=== PATIENT | male | born 1965 | race Caucasian/White ===

== ENCOUNTER 2016-07-12 03:27 | Observation (INO) | payer OTHER ==
[2016-07-12] MEDS ORDERED: ASPIRIN 81 MG TABLET, CHEWABLE PO ONE ×2 (04:07→04:21)
[2016-07-12] MEDS ORDERED: ASPIRIN 81 MG TABLET, CHEWABLE ONE (04:21)
--- NOTE | 2016-07-12 04:27 | ER Document Report ---
ED General - General Mode of Arrival: Ambulatory Information source: Patient TRAVEL OUTSIDE OF THE [place] IN LAST 30 DAYS: No - HPI Onset: Other - 3-5 days Onset/Duration: Persistent Quality of pain: Pressure Severity: Severe Pain Level: 4 Associated symptoms: Nausea Exacerbated by: Denies Relieved by: Denies Similar symptoms previously: No Recently seen / treated by doctor: No <PAT GARLAND - Last Filed: 07/12/16 07:08> <THANH VILLALTA - Last Filed: 07/12/16 08:48> - General Chief Complaint: Chest Pain Stated Complaint: CHEST PAIN Notes: Patient presents to the emergency department with complaints of chest pain midsternal, shortness of breath, nausea and pain in his left arm that makes his left hand go numb. He reports symptoms for the past 3-5 days. He reports some nausea but denies fever,vomiting,diarrhea. His reports that he hasn't been sleeping because of the pain. He reports at first it felt like a small dog was sitting on his chest and now feels more like a cow. Patient has a history of hypertension. Reports he hasn't taken meds in over a year because he thought he could cure himself. Patient also smokes a pack a day and drinks 2-3 beers a day. Reports mother with coronary artery disease but reports it was just recently diagnosed. reports increased stress in his life because two children just moved back home and she just had brain surgery. (PAT GARLAND) - Related Data Allergies/Adverse Reactions: No Known Allergies Allergy (Unverified 07/12/16 03:37) Past Medical History - General Information source: Patient - Social History Smoking Status: Current Every Day Smoker Cigarette use (# per day): Yes - 1ppd Frequency of alcohol use: Occasional - 12 pk a week Drug Abuse: None Occupation: retired Lives with: Family Family History: CAD - mother, Malignancy - father Patient has suicidal ideation: No Patient has homicidal ideation: No - Past Medical History Cardiac Medical History: Reports: Hx Hypertension Renal/ Medical History: Denies: Hx Peritoneal Dialysis Past Surgical History: Reports: Hx Orthopedic Surgery <PAT GARLAND - Last Filed: 07/12/16 07:08> Review of Systems <PAT GARLAND - Last Filed: 07/12/16 07:08> <THANH VILLALTA - Last Filed: 07/12/16 08:48> - Review of Systems Notes: Review HPI for review of systems., All other systems negative (PAT GARLAND) Physical Exam - Cardiovascular Rhythm: Regular Heart sounds: Normal auscultation Murmur: No Friction rub: No Normal capillary refill: Yes <PAT GARLAND - Last Filed: 07/12/16 07:08> <THANH VILLALTA - Last Filed: 07/12/16 08:48> - Vital signs Vitals: Temp Pulse Resp BP Pulse Ox 97.8 F 88 18 173/102 H 97 07/12/16 03:35 07/12/16 03:35 07/12/16 03:35 07/12/16 03:35 07/12/16 03:35 - Notes Notes: PHYSICAL EXAMINATION: GENERAL: Well-appearing and in no acute distress nontoxic looking, laughs easily HEAD: Atraumatic, normocephalic. EYES: Pupils equal round and reactive to light, extraocular movements intact, sclera anicteric, conjunctiva are normal. ENT: nares patent, oropharynx clear without exudates. Moist mucous membranes. NECK: Normal range of motion, supple without lymphadenopathy LUNGS: CTAB and equal. No wheezes rales or rhonchi. HEART: Regular rate and rhythm without murmurs ABDOMEN: Soft, no tenderness. No guarding, no rebound BACK: No c/o pain EXTREMITIES: Normal range of motion, no pitting edema. No cyanosis. NEUROLOGICAL: Cranial nerves grossly intact. Normal sensory/motor exams. PSYCH: Normal mood, normal affect. SKIN: Warm, Dry, normal turgor, no rashes or lesions noted (PAT GARLAND) Course - Laboratory Result Diagrams: 07/12/16 04:12 07/12/16 04:12 - Diagnostic Test Radiology reviewed: Image reviewed, Reports reviewed - RAD/ CHEST PA/LAT IMPRESSION: NO SIGNIFICANT RADIOGRAPHIC FINDING IN THE CHEST. - EKG Interpretation by Wy EKG shows normal: Sinus rhythm <PAT GARLAND - Last Filed: 07/12/16 07:08> - Laboratory Result Diagrams: 07/12/16 04:12 07/12/16 04:12 <THANH VILLALTA - Last Filed: 07/12/16 08:48> - Re-evaluation Re-evalutation: 07/12/16 04:27 Patient instructed on plan of care to include cardiac enzymes nitroglycerin for the chest pain and monitoring. Patient verbalized understanding to all instructions. 07/12/16 05:28 pt received sl ntg report it did relieve some of the pressure, now 2/5 07/12/16 07:00 Nitropaste placed on patient. He now reports pressure 1/5. Updated on repeat CE at 0800. 07/12/16 07:09 Report given to Thanh Villalta ASSOCIATE SALES REPRESENTATIVE, Pt introduced to Thanh. (PAT GARLAND) 07/12/16 08:45 Patient hemodynamically stable, resting comfortably, in no distress at this time. Second set of cardiac enzymes remain normal. Patient presentation and findings discussed with hospitalist Tanisha Ortiz ASSOCIATE SALES REPRESENTATIVE who agrees to assume care, evaluate patient in the ED, and admit to telemetry observation unit. Findings and plan discussed with patient who verbalized understanding to ending and agrees with plan. (THANH VILLALTA) - Vital Signs Vital signs: Temp Pulse Resp BP Pulse Ox 97.8 F 88 21 H 117/81 97 07/12/16 03:35 07/12/16 03:35 07/12/16 07:31 07/12/16 07:31 07/12/16 07:31 - Laboratory Laboratory results interpreted by me: 07/12/16 04:12 Chloride 108 H BUN 22 H Discharge <PAT GARLAND - Last Filed: 07/12/16 07:08> - Discharge Admitting Provider: Hospitalist - Diana Sanford Admitted: Telemetry <THANH VILLALTA - Last Filed: 07/12/16 08:48> - Discharge Clinical Impression: Chest pressure Condition: Stable Disposition: ADMITTED OBSERVATION
[2016-07-12 04:28] LABS: ABSOLUTE BASOPHILS # (AUTO) 0.1 10^3/uL (0.0-0.2); ABSOLUTE EOSINOPHILS # (AUTO) 0.2 10^3/uL (0.0-0.6); ABSOLUTE MONOCYTES (AUTO) 0.7 10^3/uL (0.1-1.4); ABSOLUTE NEUT (AUTO) 5.8 10^3/uL (1.7-8.2); EOSINOPHILS % (AUTO) 1.7 % (0-6); HEMATOCRIT 42.9 % (37.9-51.0); HEMOGLOBIN 15.1 g/dL (13.5-17.0); HGB HCT DIFFERENCE 2.4; LYMPHOCYTES % (AUTO) 22.4 % (13-45); MEAN CORPUSCULAR HGB CONC 35.1 g/dL (32.0-36.0); MEAN CORPUSCULAR VOLUME 88 fl (80-97); MONOCYTES % (AUTO) 8.3 % (3-13); RED BLOOD COUNT 4.85 10^6/uL (4.35-5.55); RED CELL DISTRIBUTION WIDTH 12.6 % (11.5-14.0); SEGMENTED NEUTROPHILS % (AUTO) 66.6 % (42-78); WHITE BLOOD COUNT 8.7 10^3/uL (4.0-10.5)
[2016-07-12] MEDS: NITROGLYCERIN 0.4 MG/TAB 25 TAB/BOTTLE SL PRN ×3 (04:30→04:47)
[2016-07-12 04:41] LABS: APPEARANCE,URINE CLEAR; BILIRUBIN,URINE NEGATIVE (NEGATIVE); GLUCOSE, URINE NEGATIVE (NEGATIVE); KETONES,URINE NEGATIVE (NEGATIVE); LEUKOCYTE ESTERASE,URINE NEGATIVE (NEGATIVE); NITRITE,URINE NEGATIVE (NEGATIVE); PROTEIN,URINE NEGATIVE (NEGATIVE); URINE SPECIFIC GRAVITY 1.019; UROBILINOGEN,URINE NEGATIVE mg/dL (<2.0)
[2016-07-12 04:45] LABS: ALANINE AMINOTRANSFERASE 26 U/L (21-72); ALBUMIN 4.3 g/dL (3.5-5.0); ALKALINE PHOSPHATASE 74 U/L (38-126); ANION GAP 11 (5-19); ASPARTATE AMINO TRANSFERASE 18 U/L (17-59); BILIRUBIN,DIRECT 0.2 mg/dL (0.0-0.4); BILIRUBIN,TOTAL 0.8 mg/dL (0.2-1.3); BLOOD UREA NITROGEN 22 mg/dL (7-20); CARBON DIOXIDE 24 mmol/L (22-30); CHLORIDE 108 mmol/L (98-107); CREATINE KINASE 70 U/L (55-170); CREATININE RESULT 1.11 mg/dL (0.52-1.25); GLUCOSE 102 mg/dL (75-110); LIPASE 90.6 U/L (23-300); SODIUM 142.5 mmol/L (137-145)
[2016-07-12 04:56] LABS: CREATINE KINASE MB 0.57 ng/mL (<4.55)
[2016-07-12 04:57] LABS: TROPONIN I < 0.012 ng/mL
[2016-07-12] MEDS ORDERED: NITROGLYCERIN 2% OINTMENT 1 GM PACKET TP ONE ×2 (05:28→05:31)
[2016-07-12] MEDS ORDERED: ONDANSETRON 4 MG TAB.RAPDIS PO ONE (05:35)
--- NOTE | 2016-07-12 08:39 | EKG REPORT ---
SEVERITY:- BORDERLINE ECG - SINUS RHYTHM PROBABLE LEFT ATRIAL ABNORMALITY : Confirmed by: Milton Burns 12-Jul-2016 08:38:25
[2016-07-12] MEDS ORDERED: ONDANSETRON 4 MG TAB.RAPDIS PO PRN (08:46)
[2016-07-12] MEDS ORDERED: MAG HYDROX/AL HYDROX/SIMETH SUSP 30 ML UDCUP PO PRN (08:46)
[2016-07-12] MEDS ORDERED: TEMAZEPAM 15 MG CAPSULE PO PRN (08:46)
[2016-07-12] MEDS: ASPIRIN 81 MG TABLET, ENT COATED PO SCH (09:55)
[2016-07-12] MEDS ORDERED: REGADENOSON INJ 0.4 MG/5 ML DISP.SYRIN IV ONE (12:35)
--- NOTE | 2016-07-12 13:18 | PDOC H&P ---
History of Present Illness Admission Date/PCP: 07/12/16 08:46 Patient complains of: Midsternal chest pain History of Present Illness: SULEMA SIMON is a 51 year old male who presents to [facility]s emergency department early this morning with midsternal chest pain awoke him from sleep. He states the pain associated with some mild shortness breath, and nausea. He states it did radiate to his left arm and shoulder. He states the pain lasted over an hour and then resolve spontaneously. He could not correlate pain increasing with activity or becoming better with rest. He does have a history of hypertension and tobacco abuse. He has not taken any medications for his hypertension and the last year. He does not routinely follow with a healthcare provider. He has family history of coronary artery disease in his mother had coronary bypass graft surgery in her 70s. He has presently pain-free. He also admits to being under a great deal of stress at home with who is ill and has adult children who have returned home to live. Past Medical History Cardiac Medical History: Reports: Hypertension Pulmonary Medical History: Reports: None EENT Medical History: Reports: None Neurological Medical History: Reports: None Endocrine Medical History: Reports: None Renal/ Medical History: Reports: None Malignancy Medical History: Reports: None GI Medical History: Reports: None Musculoskeltal Medical History: Reports: None Skin Medical History: Reports: None Psychiatric Medical History: Reports: Tobacco Dependency Traumatic Medical History: Reports: None Hematology: Reports: None Infectious Medical History: Reports: None Past Surgical History Past Surgical History: Reports: Orthopedic Surgery - right rotator cuff surgery Social History Information Source: Patient Lives with: Family Smoking Status: Current Every Day Smoker Cigarettes Packs Per Day: 1 Number of Years Smokin Last Time Smoked: yesterday Frequency of Alcohol Use: Occasional Amount of Alcoholic Beverages Per Day: 2-3 beers daily Hx Recreational Drug Use: No Hx Prescription Drug Abuse: No - Advance Directive Resuscitation Status: Full Code Family History Family History: CAD - mother, Malignancy - father Parental Family History Reviewed: Yes Children Family History Reviewed: Yes Sibling(s) Family History Reviewed.: Yes Medication/Allergy Home Medications: No Home Medications 07/12/16 Allergies/Adverse Reactions: No Known Allergies Allergy (Unverified 07/12/16 03:37) Review of Systems Constitutional: ABSENT: chills, fever(s), headache(s), weight gain, weight loss Eyes: ABSENT: visual disturbances Ears: ABSENT: hearing changes Cardiovascular: PRESENT: chest pain Respiratory: ABSENT: cough, hemoptysis Gastrointestinal: ABSENT: abdominal pain, constipation, diarrhea, hematemesis, hematochezia, nausea, vomiting Genitourinary: ABSENT: dysuria, hematuria Musculoskeletal: ABSENT: joint swelling Integumentary: ABSENT: rash, wounds Neurological: ABSENT: abnormal gait, abnormal speech, confusion, dizziness, focal weakness, syncope Psychiatric: ABSENT: anxiety, depression, homidical ideation, suicidal ideation Endocrine: ABSENT: cold intolerance, heat intolerance, polydipsia, polyuria Hematologic/Lymphatic: ABSENT: easy bleeding, easy bruising Physical Exam Vital Signs: Temp Pulse Resp BP Pulse Ox 97.8 F 88 11 L 128/80 H 98 07/12/16 03:35 07/12/16 03:35 07/12/16 11:30 07/12/16 11:30 07/12/16 11:30 General appearance: PRESENT: no acute distress, well-developed, well-nourished Head exam: PRESENT: atraumatic, normocephalic Eye exam: PRESENT: conjunctiva pink, EOMI, PERRLA. ABSENT: scleral icterus Ear exam: PRESENT: normal external ear exam Mouth exam: PRESENT: moist, tongue midline Neck exam: ABSENT: carotid bruit, JVD, lymphadenopathy, thyromegaly Respiratory exam: PRESENT: clear to auscultation kailey. ABSENT: rales, rhonchi, wheezes Cardiovascular exam: PRESENT: RRR. ABSENT: diastolic murmur, rubs, systolic murmur Pulses: PRESENT: normal dorsalis pedis pul Vascular exam: PRESENT: normal capillary refill GI/Abdominal exam: PRESENT: normal bowel sounds, soft. ABSENT: distended, guarding, mass, organolmegaly, rebound, tenderness Rectal exam: PRESENT: deferred Extremities exam: PRESENT: full ROM. ABSENT: calf tenderness, clubbing, pedal edema Neurological exam: PRESENT: alert, awake, oriented to person, oriented to place , oriented to time, oriented to situation, CN II-XII grossly intact. ABSENT: motor sensory deficit Psychiatric exam: PRESENT: appropriate affect, normal mood. ABSENT: homicidal ideation, suicidal ideation Skin exam: PRESENT: dry, intact, warm. ABSENT: cyanosis, rash Results Impressions: Chest X-Ray 07/12/16 04:07 IMPRESSION: NO SIGNIFICANT RADIOGRAPHIC FINDING IN THE CHEST. Assessment & Plan - Diagnosis (1) Chest pain Qualifiers: Chest pain type: unspecified Qualified Code(s): R07.9 - Chest pain, unspecified Is this a current diagnosis for this admission?: YesPlan: Patient's presently pain-free. We will admit to telemetry on observation obtain stress test. Serial troponins. Pain is not typical for cardiac nature more likely musculoskeletal. (2) Essential hypertension Is this a current diagnosis for this admission?: YesPlan: We'll place on eliseo inhibitor and follow blood pressure (3) Tobacco abuse Is this a current diagnosis for this admission?: YesPlan: Patient was counseled on the need to quit smoking. When necessary nicotine patch (4) Stress Is this a current diagnosis for this admission?: YesPlan: Anxiolytics as needed - Time Time Spent: 50 to 70 Minutes Critical Time spent with patient: 25-34 minutes Smoking Cessation Education: 3 to 10 minutes Medications reviewed and adjusted accordingly: Yes Anticipated discharge: Home Within: within 24 hours
[2016-07-12] MEDS ORDERED: ALPRAZOLAM 0.5 MG TABLET PO PRN (14:12)
[2016-07-12] MEDS ORDERED: HYDRALAZINE HCL INJ/PF 20 MG/1 ML SDV IV PRN (14:59)
[2016-07-12] MEDS ORDERED: LOSARTAN POTASSIUM 50 MG TABLET PO ONE (16:15)
[2016-07-12] MEDS: LANSOPRAZOLE 30 MG TAB.RAP.DR PO SCH (16:50)
[2016-07-13] MEDS: LANSOPRAZOLE 30 MG TAB.RAP.DR PO SCH (05:46)
[2016-07-13 06:53] LABS: CHOLESTEROL 219.89 mg/dL (0-200); Direct HDL 54 mg/dL (>40); TRIGLYCERIDES 144 mg/dL (<150)
[2016-07-13 07:05] LABS: DIRECT LDL 102 mg/dL (<100)
[2016-07-13] MEDS ORDERED: NICOTINE 21 MG/24 HR PATCH.TD24 TD SCH (10:00)
[2016-07-13] MEDS ORDERED: LOSARTAN POTASSIUM 50 MG TABLET PO SCH (10:00)
[2016-07-13] MEDS: ASPIRIN 81 MG TABLET, ENT COATED PO SCH (12:23)
[2016-07-13 13:46] VITALS: BP 121/67
--- NOTE | 2016-07-13 15:57 | PDOC DISCHARGE SUMMARY ---
General - Admit/Disc Date/PCP Admission Date/Primary Care Provider: 07/12/16 08:46 Discharge Date: 07/13/16 - Discharge Diagnosis (1) Chest pain Is this a current diagnosis for this admission?: YesSummary: Troponins remained negative 3. Patient underwent Cardiolite stress testing which was read negative for ischemia by the food production worker. The patient's symptoms are most consistent with GERD. He was started on Prevacid with improvement of his symptoms. He is pain-free upon discharge (2) Essential hypertension Is this a current diagnosis for this admission?: YesSummary: Patient was started on losartan 50 mg daily with good control of his blood pressure. (3) Tobacco abuse Is this a current diagnosis for this admission?: YesSummary: Patient was counseled on the need to quit with family history of coronary artery disease. (4) Stress Is this a current diagnosis for this admission?: YesSummary: Discussed nonpharmacological stress reduction techniques. Patient was encouraged to exercise. - Additional Information Resuscitation Status: Full Code Discharge Activity: Activity As Tolerated Home Medications: Lansoprazole [Prevacid 30 mg Odt Tablet] 30 mg PO DAILY #30 tab. 07/13/16 Losartan Potassium [Cozaar 50 mg Tablet] 50 mg PO DAILY #30 tablet 07/13/16 History of Present Illness Patient complains of: Chest pain History of Present Illness: SULEMA SIMON is a 51 year old male [facility] this morning with midsternal chest pain awoke him from sleep. He states the pain associated with some mild shortness breath, and nausea. He states it did radiate to his left arm and shoulder. He states the pain lasted over an hour and then resolve spontaneously. He could not correlate pain increasing with activity or becoming better with rest. He does have a history of hypertension and tobacco abuse. He has not taken any medications for his hypertension and the last year. He does not routinely follow with a healthcare provider. He has family history of coronary artery disease in his mother had coronary bypass graft surgery in her 70s. He has presently pain-free. He also admits to being under a great deal of stress at home with who is ill and has adult children who have returned home to live. Hospital Course Hospital Course: The patient was referred to the hospitalist for admission. He was admitted to the telemetry floor. Serial troponins were drawn which were all negative. He was started on prevacid for possible GERD with improvement of his symptoms. He was started on Losartan for uncontrolled hypertension with good affect. He underwent cardiolite stress testing which was read as negative for ischemia by the food production worker, Physical Exam Vital Signs: Temp Pulse Resp BP Pulse Ox 98 F 77 16 121/67 98 07/13/16 14:16 07/13/16 14:16 07/13/16 14:16 07/13/16 14:16 07/13/16 14:16 Intake & Output 07/12/16 07/13/16 07/14/16 06:59 06:59 06:59 Intake Total 0 Balance 0 Weight 79.2 kg General appearance: PRESENT: no acute distress, well-developed, well-nourished Head exam: PRESENT: atraumatic, normocephalic Eye exam: PRESENT: conjunctiva pink, EOMI, PERRLA. ABSENT: scleral icterus Ear exam: PRESENT: normal external ear exam Mouth exam: PRESENT: moist, tongue midline Neck exam: ABSENT: carotid bruit, JVD, lymphadenopathy, thyromegaly Respiratory exam: PRESENT: clear to auscultation kailey. ABSENT: rales, rhonchi, wheezes Cardiovascular exam: PRESENT: RRR. ABSENT: diastolic murmur, rubs, systolic murmur Pulses: PRESENT: normal dorsalis pedis pul Vascular exam: PRESENT: normal capillary refill GI/Abdominal exam: PRESENT: normal bowel sounds, soft. ABSENT: distended, guarding, mass, organolmegaly, rebound, tenderness Rectal exam: PRESENT: deferred Extremities exam: PRESENT: full ROM. ABSENT: calf tenderness, clubbing, pedal edema Neurological exam: PRESENT: alert, awake, oriented to person, oriented to place , oriented to time, oriented to situation, CN II-XII grossly intact. ABSENT: motor sensory deficit Psychiatric exam: PRESENT: appropriate affect, normal mood. ABSENT: homicidal ideation, suicidal ideation Skin exam: PRESENT: dry, intact, warm. ABSENT: cyanosis, rash Results Laboratory Results: 07/13/16 06:14 Triglycerides 144 Cholesterol 219.89 H LDL Cholesterol Direct 102 H VLDL Cholesterol 29.0 HDL Cholesterol 54 07/12/16 07/12/16 07/13/16 12:58 19:11 01:00 Troponin I < 0.012 < 0.012 < 0.012 Impressions: Chest X-Ray 07/12/16 04:07 IMPRESSION: NO SIGNIFICANT RADIOGRAPHIC FINDING IN THE CHEST. Qualifiers PATEINT BEING DISCHARGED WITH ANY OF THE FOLLOWING DIAGNOSIS?: No Plan Discharge Plan: Home with family Time Spent: Less than 30 Minutes
--- NOTE | 2016-07-13 16:30 | DRAGON STRESS TEST REPORT ---
Intravenous Lexiscan Cardiolite stress test using single photon emmision computerized tomography. Date of procedure: 07/12/2016 Ordering Provider: Miss. Marsha Ortiz Indication: Chest pain. Coronary risk factors: Age, hypertension, tobacco abuse disorder, and family history of coronary artery disease. Resting EKG: Sinus Rhythm. Within Normal Limits. The patient had no chest pain or discomfort, and there were no arrhythmias seen Stress EKG:[ No changes of ischemia. Reason for termination: Protocol. Conclusions: Normal EKG and hemodynamic response to IV Lexiscan. Nuclear data: At rest the patient was given 12.29 millicuries of technetium 99m sestamibi injected intravenously. As per protocol rest non gated SPECT images were obtained. Subsequently the patient was given intravenous Lexiscan at a dose of 0.4 mg in 5 mL intravenously, followed by flush with normal saline. Subsequently the stress dose of 35.6 millicuries of technetium 99m sestamibi was injected intravenously. As per protocol stress gated images were obtained. Nuclear interpretation: Review of images showed that there is motion artifact, but in spite of this all segments of the myocardium had normal perfusion at rest, and normal perfusion post stress with IV Lexiscan. All segments of the myocardium had normal motion, contraction, and thickening by gated study. T. I D. ratio was normal at 1.17. Computer read rest, and stress left ventricular ejection fraction were 48 %, and 50 %, respectively. Visually both the stress and rest ejection fractions were normal, and greater than 55%. Conclusion: 1. There is no scintigraphic evidence of Lexiscan induced myocardial ischemia. 2. There is no scintigraphic evidence of myocardial infarction/scar. Recommendations: Aggressive risk factor modification, and treating the underlying co- morbidities. [facility]
== END 2016-07-13 14:44 | disposition home or self-care (01) ==
LOC: ER 03:27 → EH 08:46 → UNDOADMOB 09:14 → EH 09:14 → 4N 14:10
PROVIDERS: ADMIT Family Medicine; ATTEND Family Medicine
DX: R07.9 Chest pain, unspecified (principal); I10 Essential (primary) hypertension; F43.9 Reaction to severe stress, unspecified; F17.200 Nicotine dependence, unspecified, uncomplicated; Z82.49 Family history of ischemic heart disease and other diseases of the circulatory system
CPT/HCPCS: 93005; 99285; 36415 ×2; 82553; 82550; 83690; 85025; 80053; 81001; 84484 ×2; 80061; 93017; 71020; 78452; 93010; G0378 ×3; A9500; J2785; S0119; J3490 ×2; Q9969

== ENCOUNTER 2018-06-27 12:16 | Emergency (ER) | payer OTHER ==
--- NOTE | 2018-06-27 13:18 | ER Document Report ---
HPI - HPI Time Seen by Provider: 06/27/18 12:54 Pain Level: 3 Context: Patient is a 53-year-old male who presents to the emergency department with a chief complaint of left dorsal shoulder pain and a bruise to the dorsal aspect of his right thigh. He denies any injury. He takes Motrin 800 mg every day to help with his pain. Denies any stomach pain. His shoulder pain has been going on for the past 2 months. He has an appointment with his primary care doctor in July. He denies any nausea, vomiting, or diarrhea. Denies any past medical history. Does not take any medications other than ibuprofen. Denies any trauma. - CONSTITUTIONAL Constitutional: DENIES: Fever, Chills - NEURO Neurology: DENIES: Headache, Weakness - CARDIOVASCULAR Cardiovascular: DENIES: Chest pain - RESPIRATORY Respiratory: DENIES: Coughing - REPRODUCTIVE Reproductive: DENIES: : - MUSCULOSKELETAL Musculoskeletal: REPORTS: Extremity pain - Right posterior thigh, Back Pain - Left upper - DERM Skin Color: Normal, Ecchymosis - Right posterior thigh Skin Problems: None Past Medical History - Social History Smoking Status: Current Every Day Smoker Family History: CAD - mother, Malignancy - father - Past Medical History Cardiac Medical History: Reports: Hx Hypertension Denies: Hx Congestive Heart Failure, Hx Heart Attack Pulmonary Medical History: Denies: Hx Asthma, Hx Bronchitis, Hx COPD, Hx Pneumonia, Hx Tuberculosis Neurological Medical History: Denies: Hx Seizures Renal/ Medical History: Denies: Hx Benign Prostatic Hyperplasia, Hx End Stage Renal Disease, Hx Kidney Stones, Hx Peritoneal Dialysis GI Medical History: Reports: Hx Gastroesophageal Reflux Disease. Denies: Hx Cirrhosis, Hx Ulcer Musculoskeletal Medical History: Denies Hx Arthritis, Denies Hx Multiple Sclerosis Psychiatric Medical History: Denies: Hx Bipolar Disorder, Hx Depression, Hx Schizophrenia Past Surgical History: Reports: Hx Orthopedic Surgery - right rotator cuff surgery - Immunizations Hx Diphtheria, Pertussis, Tetanus Vaccination: Yes Vertical Provider Document - CONSTITUTIONAL Agree With Documented VS: Yes Exam Limitations: No Limitations - INFECTION CONTROL TRAVEL OUTSIDE OF THE [place] IN LAST 30 DAYS: No - HEENT HEENT: Atraumatic, Normocephalic - RESPIRATORY Respiratory: Breath Sounds Normal, No Respiratory Distress - CARDIOVASCULAR Cardiovascular: Regular Rate, Regular Rhythm - MUSCULOSKELETAL/EXTREMETIES Musculoskeletal/Extremeties: FROM, Tender - Left upper back, right posterior thigh - NEURO Level of Consciousness: Awake, Alert, Appropriate - DERM Integumentary: Warm, Dry Notes: Ecchymosis noted to right posterior thigh Course - Re-evaluation Re-evalutation: 06/27/18 13:18 I do not suspect patient has any life-threatening etiology at this time. He does have muscle tension noted to his left dorsal shoulder. I massage the area and felt a large knot in the area. He will be given cyclobenzaprine to help with his symptoms. He is in agreement with this plan. He will follow-up with a primary care provider. Verbal discharge instructions were given to the patient. They verbalized understanding. They are stable for discharge. - Vital Signs Vital signs: Temp Pulse Resp BP Pulse Ox 97.8 F 92 18 187/99 H 100 06/27/18 12:22 06/27/18 12:22 06/27/18 12:22 06/27/18 12:22 06/27/18 12:22 Discharge - Discharge Clinical Impression: Right leg pain Left shoulder pain Qualifiers: Chronicity: chronic Qualified Code(s): M25.512 - Pain in left shoulder Condition: Stable Disposition: HOME, SELF-CARE Additional Instructions: You have seen today in the emergency department for left shoulder pain and right leg pain. You have muscle tension to your left shoulder. You have been given Flexeril, muscle relaxer to help with your symptoms. The bruise to your right leg is most likely from a burst varicose vein. It is healing well. Please keep your follow-up appointment with your primary care provider. If you have worsening symptoms, or have any symptoms that are worrisome to you, please return to the emergency department. Prescriptions: Cyclobenzaprine HCl [Flexeril 10 mg Tablet] 10 mg PO TIDP PRN #15 tab PRN Reason:
[2018-06-27 13:36] VITALS: BP 158/104
== END 2018-06-27 13:25 | disposition home or self-care (01) ==
LOC: ER 12:16
DX: M25.512 Pain in left shoulder (principal); M79.604 Pain in right leg; I10 Essential (primary) hypertension; F17.200 Nicotine dependence, unspecified, uncomplicated
CPT/HCPCS: 99283